=== PATIENT | male | born 1990 ===

== ENCOUNTER 2017-06-11 17:20 | Emergency (ER) | payer OTHER ==
[~2017-06-11] VITALS: Ht 172.7 cm; Wt 78.3 kg
[2017-06-11 17:24] VITALS: TEMP 36.7; Ht 172.7 cm; Wt 78.3 kg
[2017-06-11 17:55] LABS: BASO % 0.3 %; BASO ABS # 0.02 K/uL (0-0.2); EOS % 1.8 %; EOS ABS # 0.13 K/uL (0-0.5); HEMATOCRIT 41.8 % (42-52); HEMOGLOBIN 14.7 g/dL (14.0-18.0); IG# 0.06 K/uL (0.00-0.02); LYMPH % 42.8 %; LYMPH ABS # 3.17 K/uL (1.2-3.4); MEAN CORPUSCULAR HEMOGLOBIN 30.9 pg (25-34); MEAN CORPUSCULAR HGB CONC 35.2 g/dl (32-36); MEAN PLATELET VOLUME 10.2 fL (7.4-10.4); MONO % 10.9 %; MONO ABS # 0.81 K/uL (0.11-0.59); NEUT % 43.4 %; NEUT ABS # 3.22 K/uL (1.4-6.5); PLATELET COUNT 314 K/uL (130-400); RED CELL DISTRIBUTION WIDTH CV 12.2 % (11.5-14.5); RED CELL DISTRIBUTION WIDTH SD 39.4 fL (36.4-46.3); WHITE BLOOD COUNT 7.41 K/uL (4.8-10.8)
--- NOTE | 2017-06-11 18:13 | DIAGNOSTIC IMAGING REPORT ---
ABD/PELVIS WITHOUT FOR STONE CLINICAL HISTORY: 26 years-old Male presenting with left pain eval for stone. TECHNIQUE: Multidetector CT of the abdomen and pelvis was performed without the use of intravenous contrast. IV contrast: None. A dose lowering technique was used consistent with the principles of ALARA (as low as reasonably achievable). COMPARISON: None. CT DOSE (mGy.cm): The estimated cumulative dose is 876.85 mGy.cm. FINDINGS: Die Developer topogram: Unremarkable. Lung bases: Lungs and pleural spaces clear. Normal heart size. No pericardial or pleural effusion. Liver: Normal morphology. Normal density. Biliary: No gross biliary ductal dilatation allowing for noncontrast technique. Normal gallbladder. Pancreas: Normal noncontrast appearance. Spleen: Normal noncontrast appearance. Adrenal glands: Normal noncontrast appearance. Kidneys and ureters: Normal noncontrast appearance. No nephrolithiasis. No hydronephrosis. Normal ureters. Bladder: Incompletely evaluated secondary to underdistention. Pelvic organs: Normal noncontrast appearance. Bowel: Normal noncontrast appearance. No bowel obstruction. Peritoneal cavity: No free fluid or intraperitoneal gas. Lymph nodes: No gross lymphadenopathy allowing for noncontrast technique. Vasculature: Normal noncontrast appearance. Abdominal wall: Normal. Musculoskeletal: Normal. IMPRESSION: 1. No acute intra-abdominal pathology. No nephrolithiasis or hydronephrosis. No ureteral calculus. Electronically signed by: Amilcar Esparza M.D. 06/11/2017 6:11 PM Dictated Date/Time: 06/11/2017 6:06 PM
[2017-06-11] MEDS ORDERED: LIDOCAINE HCL 2% VISC SOLN 20 ML UDC PO STA (18:17)
[2017-06-11] MEDS ORDERED: ALUMINUM/MAGNESIUM SUSP 30 ML UDC PO STA (18:17)
[2017-06-11 18:22] LABS: ALBUMIN 4.7 gm/dl (3.4-5.0); CALCIUM 9.2 mg/dl (8.5-10.1); CREATININE 0.92 mg/dl (0.60-1.40); POTASSIUM 3.8 mmol/L (3.5-5.1)
[2017-06-11 18:24] LABS: TOTAL PROTEIN 8.5 gm/dl (6.4-8.2)
[2017-06-11 19:02] VITALS: BP 125/58; PULSE 57; O2SAT 97
--- NOTE | 2017-06-11 19:41 | EMERGENCY ROOM VISIT NOTE ---
History Report prepared by Salima: Jose L Nolasco Under the Supervision of: Dr. James Justice M.D. First contact with patient: 17:27 Chief Complaint: ABDOMINAL PAIN Stated Complaint: LOWER L ABDOMINAL PAIN History of Present Illness The patient is a 26 year old male who presents to the Emergency Room with complaints of constant LLQ abdominal pain beginning a few weeks ago. He describes his pain as "cramp-like". His pain radiates down toward his groin. The patient states that he developed "sharp" pain today. He notes that his face currently feels very hot. His pain is occasionally improved with bowel movements. Nothing worsens his pain. The patient had a fever, and diarrhea last week, but states that the diarrhea and fever have resolved. He denies vomiting, or hematuria. He feels that he has had decreased urinary output, but that when he drinks a lot of water he has increased urinary output. Source of History: patient Onset: A few weeks ago Position: abdomen (LLQ) Quality: sharp, other ("cramp-like") Timing: constant Modifying Factors (Worsening): other (none) Modifying Factors (Relieving): other (Bowel movements) Associated Symptoms: + fevers (last week, resolved), + diarrhea (last week, resolved), No vomiting Note: The patient denies hematuria. Review of Systems See HPI for pertinent positives & negatives. A total of 10 systems reviewed and were otherwise negative. Past Medical & Surgical Medical Problems: (1) No Known Active Medical Problems Family History No pertinent family history stated. Social History Smoking Status: Current Some Day Smoker Occupation Status: employed Current/Historical Medications No Active Prescriptions or Reported Meds Allergies Coded Allergies: No Known Allergies (Unverified , 06/11/17) Physical Exam Vital Signs Date Time Temp Pulse Resp B/P (MAP) Pulse Ox O2 Delivery O2 Flow Rate FiO2 06/11/17 19:02 57 18 125/58 97 06/11/17 17:24 36.7 70 18 143/84 100 Room Air Physical Exam Constitutional: Vital signs reviewed. Eyes: Pupils are equal round reactive to light. Conjunctiva are noninjected. ENT: Pharynx is clear without erythema or exudate. Mucous membranes are moist. Neck supple without meningeal signs. Respiratory: Clear to auscultation bilaterally. Breath sounds are equal bilaterally. Cardiovascular: Regular rate and rhythm. No rubs or gallops. GI: Soft, and nondistended. Bowel sounds are present. Left mid-abdominal tenderness. No guarding. Musculoskeletal: No peripheral edema. No lower extremity tenderness. Integumentary: No cyanosis. Neurological: The patient is awake and alert. No focal deficits. Psychiatric: Normal affect. Medical Decision & Procedures ER Provider Diagnostic Interpretation: Radiology results as stated below per my review and the radiologist's interpretation: ABD/PELVIS WITHOUT FOR STONE FINDINGS: Insecticide Mixer topogram: Unremarkable. Lung bases: Lungs and pleural spaces clear. Normal heart size. No pericardial or pleural effusion. Liver: Normal morphology. Normal density. Biliary: No gross biliary ductal dilatation allowing for noncontrast technique. Normal gallbladder. Pancreas: Normal noncontrast appearance. Spleen: Normal noncontrast appearance. Adrenal glands: Normal noncontrast appearance. Kidneys and ureters: Normal noncontrast appearance. No nephrolithiasis. No hydronephrosis. Normal ureters. Bladder: Incompletely evaluated secondary to underdistention. Pelvic organs: Normal noncontrast appearance. Bowel: Normal noncontrast appearance. No bowel obstruction. Peritoneal cavity: No free fluid or intraperitoneal gas. Lymph nodes: No gross lymphadenopathy allowing for noncontrast technique. Vasculature: Normal noncontrast appearance. Abdominal wall: Normal. Musculoskeletal: Normal. IMPRESSION: 1. No acute intra-abdominal pathology. No nephrolithiasis or hydronephrosis. No ureteral calculus. Electronically signed by: Amilcar Esparza M.D. 06/11/2017 6:11 PM Laboratory Results 06/11/17 17:41 Red Blood Count 4.75, Mean Corpuscular Volume 88.0, Mean Corpuscular Hemoglobin 30.9, Mean Corpuscular Hemoglobin Concent 35.2, Mean Platelet Volume 10.2, Neutrophils (%) (Auto) 43.4, Lymphocytes (%) (Auto) 42.8, Monocytes (%) (Auto) 10.9, Eosinophils (%) (Auto) 1.8, Basophils (%) (Auto) 0.3, Neutrophils # (Auto ) 3.22, Lymphocytes # (Auto) 3.17, Monocytes # (Auto) 0.81, Eosinophils # (Auto ) 0.13, Basophils # (Auto) 0.02 06/11/17 17:41 Test 2/13/18 17:41 06/11/17 18:00 White Blood Count 7.41 K/uL (4.8-10.8) Red Blood Count 4.75 M/uL (4.7-6.1) Hemoglobin 14.7 g/dL (14.0-18.0) Hematocrit 41.8 % (42-52) Mean Corpuscular Volume 88.0 fL (80-100) Mean Corpuscular Hemoglobin 30.9 pg (25-34) Mean Corpuscular Hemoglobin Concent 35.2 g/dl (32-36) Platelet Count 314 K/uL (130-400) Mean Platelet Volume 10.2 fL (7.4-10.4) Neutrophils (%) (Auto) 43.4 % Lymphocytes (%) (Auto) 42.8 % Monocytes (%) (Auto) 10.9 % Eosinophils (%) (Auto) 1.8 % Basophils (%) (Auto) 0.3 % Neutrophils # (Auto) 3.22 K/uL (1.4-6.5) Lymphocytes # (Auto) 3.17 K/uL (1.2-3.4) Monocytes # (Auto) 0.81 K/uL (0.11-0.59) Eosinophils # (Auto) 0.13 K/uL (0-0.5) Basophils # (Auto) 0.02 K/uL (0-0.2) RDW Standard Deviation 39.4 fL (36.4-46.3) RDW Coefficient of Variation 12.2 % (11.5-14.5) Immature Granulocyte % (Auto) 0.8 % Immature Granulocyte # (Auto) 0.06 K/uL (0.00-0.02) Anion Gap 7.0 mmol/L (3-11) Est Creatinine Clear Calc Drug Dose 115.6 ml/min Estimated GFR () 130.7 Estimated GFR (Non- 112.8 BUN/Creatinine Ratio 12.6 (10-20) Calcium Level 9.2 mg/dl (8.5-10.1) Total Bilirubin 1.1 mg/dl (0.2-1) Direct Bilirubin 0.2 mg/dl (0-0.2) Aspartate Amino Transf (AST/SGOT) 17 U/L (15-37) Alanine Aminotransferase (ALT/SGPT) 25 U/L (12-78) Alkaline Phosphatase 80 U/L (45-117) Total Protein 8.5 gm/dl (6.4-8.2) Albumin 4.7 gm/dl (3.4-5.0) Lipase 206 U/L (73-393) Urine Color YELLOW Urine Appearance CLEAR (CLEAR) Urine pH 6.5 (4.5-7.5) Urine Specific Innis 1.014 (1.000-1.030) Urine Protein NEG (NEG) Urine Glucose (UA) NEG (NEG) Urine Ketones NEG (NEG) Urine Occult Blood NEG (NEG) Urine Nitrite NEG (NEG) Urine Bilirubin NEG (NEG) Urine Urobilinogen NEG (NEG) Urine Leukocyte Esterase NEG (NEG) Laboratory results as reviewed by me. Medications Administered Medications (Trade) Dose Ordered Sig/Addison Route Start Time Stop Time Status Last Admin Dose Admin Lidocaine HCl (Viscous Lidocaine 2% Soln) 10 ml NOW STAT PO 06/11/17 18:17 06/11/17 18:18 DC 06/11/17 18:24 10 ML Al Hydroxide/Mg Hydroxide (Maalox Susp) 30 ml NOW STAT PO 06/11/17 18:17 06/11/17 18:18 DC 06/11/17 18:23 30 ML ED Course 1728: The patient was evaluated in room B10. A complete history and physical exam was performed. 1816: Ordered Maalox Susp 30 mL PO, Viscous Lidocaine 2% Soln 10 mL PO. 1840: Upon reevaluation, the patient appeared to have improvement of his symptoms. I discussed tonight's findings with him. He verbalized agreement of the treatment plan. The patient was discharged home. Medical Decision This is a 26-year-old male who presents with left-sided abdominal pain. Differential diagnosis includes renal colic, hydronephrosis, UTI, strain, diverticulitis, inflammatory bowel disease, peptic ulcer disease, irritable bowel syndrome. I did perform a limited focused review of portions of the patient's old chart on the electronic medical record. The patient has had no prior visits to this hospital. I did evaluate the patient as noted above. The patient is having some crampy left-sided abdominal pain which started a few weeks ago. He now states it feels like it is traveling down into his lower abdomen. IV access was established. I did order and personally review the patient's urine analysis as described above. I did order and review the patient's blood work as noted in the electronic medical record. His white blood cell count is not elevated. LFTs and lipase are unremarkable. I did order a CT of the abdomen and pelvis. I did review the images myself as well as the radiology report as described above. No acute abnormalities are found. I did treat the patient with a GI cocktail. I did reassess the patient and discussed his test results with him. He did not have much improvement with the GI cocktail. At this time the cause of his pain is unclear. I did strongly advise him to follow-up closely with his doctor and should he have persistent symptoms he may need referral to gastroenterology. The patient was discharged in good condition and given return instructions as outlined below. Medication Reconcilliation Current Medication List: was personally reviewed by me Blood Pressure Screening Patient's blood pressure: Elevated blood pressure Blood pressure disposition: Referred to PCP Impression Primary Impression: Left sided abdominal pain Scribe Attestation The scribe's documentation has been prepared under my direct and personally reviewed by me in its entirety. I confirm that the note above accurately reflects all work, treatment, procedures, and medical decision making performed by me. Departure Information Dispostion Home / Self-Care Prescriptions No Active Prescriptions or Reported Meds Referrals No Doctor, Assigned (PCP) Forms HOME CARE DOCUMENTATION FORM, IMPORTANT VISIT INFORMATION Patient Instructions ED Abdominal Pain Unkn Cause Male, My [facility] Additional Instructions You have been examined and treated today on an emergency basis only. This is not a substitute for, or an effort to provide, complete comprehensive medical care. It is impossible to recognize and treat all injuries or illnesses in a single emergency department visit. It is therefore important that you follow up closely with your physician. Call as soon as possible for an appointment. Return for worsening symptoms or if you develop fever, vomiting, black or bloody stools or any other concerning symptoms.
== END 2017-06-11 19:00 | disposition home or self-care (01) ==
LOC: C.EDB 17:23
DX: R10.32 Left lower quadrant pain (principal); F17.210 Nicotine dependence, cigarettes, uncomplicated